=== PATIENT | female | born 1965 | race Caucasian/White ===

== ENCOUNTER → 2018-11-04 | Outpatient (CLI) | payer BC ==
--- NOTE | 2018-11-04 11:04 | RAD ---
Ultrasound left breast INDICATION: Left breast lump TECHNIQUE: Grayscale images of the left breast Limited from 6-9:00 position. COMPARISON: None FINDINGS: No solid or cystic lesion seen in the interrogated left breast. IMPRESSION: No abnormal sonographic findings in the region of palpable abnormality. Electronically signed by: Remberto Duque DO (11/04/2018 11:00 AM) [facility]
--- NOTE | 2018-11-04 11:23 | RAD ---
DATE: 11/04/2018 EXAM: MAMMO NAMRATA DIAG BILAT HISTORY: Left breast lump. COMPARISON: None This study was interpreted with the benefit of Computerized Aided Detection (CAD). FINDINGS: Breast Density: SCATTERED The breast parenchyma shows scattered fibroglandular densities. Breast parenchyma level B. Bilateral retroperitoneal breast implants. The nipples and skin are within normal limits. No suspicious calcifications, spiculated mass or area of architectural distortion. IMPRESSION: No mammographic evidence of malignancy. BI-RADS CATEGORY: 2 BENIGN FINDING(S) RECOMMENDED FOLLOW-UP: 12M 12 MONTH FOLLOW-UP PQRS compliance statement: Patient information was entered into a reminder system with a target due date for the next mammogram. Mammography is a sensitive method for finding small breast cancers, but it does not detect them all and is not a substitute for careful clinical examination. A negative mammogram does not negate a clinically suspicious finding and should not result in delay in biopsying a clinically suspicious abnormality. "Our facility is accredited by the [employer] Mammography Program."
== END | disposition home or self-care (01) ==
LOC: MAMMO 09:10
PROVIDERS: ATTEND Physician Assistant Medical
DX: N63.24 Unspecified lump in the left breast, lower inner quadrant (principal)
CPT/HCPCS: 76641; 77066; G0279; 77062

== ENCOUNTER → 2021-06-14 | Outpatient (CLI) | payer BC ==
[2021-06-14 10:40] LABS: BASO % 1 % (0-3); EOS # 0.1 x10^3/uL (0.0-0.7); EOS % 1 % (0-3); HEMATOCRIT 46.7 % (36.0-47.0); HEMOGLOBIN 15.3 g/dL (12.0-15.5); LYMPH # 2.2 x10^3/uL (1.0-4.8); LYMPH % 29 % (24-48); MEAN CORPUSCULAR HEMOGLOBIN 31 pg (25-35); MEAN CORPUSCULAR HGB CONC 33 g/dL (31-37); MEAN CORPUSCULAR VOLUME 93 fL (79-100); MONO # 0.6 x10^3/uL (0.0-1.1); MONO % 8 % (0-9); NEUT # 4.8 x10^3uL (1.8-7.7); NEUT % 62 % (31-73); PLATELET COUNT 290 x10^3/uL (140-400); RED BLOOD COUNT 5.01 x10^6/uL (3.50-5.40); RED CELL DISTRIBUTION WIDTH 14.3 % (11.5-14.5); WHITE BLOOD COUNT 7.7 x10^3/uL (4.0-11.0)
[2021-06-14 10:52] LABS: ALBUMIN 4.1 g/dL (3.4-5.0); ALBUMIN/GLOBULIN RATIO 1.3 (1.0-1.7); ALK PHOS 115 U/L (46-116); ALT (SGPT) 24 U/L (14-59); ANION GAP 10 (6-14); AST (SGOT) 16 U/L (15-37); BLOOD UREA NITROGEN 4 mg/dL (7-20); BUN/CREATININE RATIO 6 (6-20); CALCIUM 9.1 mg/dL (8.5-10.1); CARBON DIOXIDE 24 mmol/L (21-32); CHLORIDE 107 mmol/L (98-107); CREATININE 0.7 mg/dL (0.6-1.0); GFR 86.2; GLUCOSE 92 mg/dL (70-99); POTASSIUM 3.8 mmol/L (3.5-5.1); SODIUM 141 mmol/L (136-145); TOTAL BILIRUBIN 0.3 mg/dL (0.2-1.0); TOTAL PROTEIN 7.3 g/dL (6.4-8.2)
[2021-06-14 10:53] LABS: BILIRUBIN,URINE NEG (NEG); CLARITY,URINE CLEAR; COLOR,URINE STRAW; GLUCOSE,URINE NEG (NEG); NITRITE,URINE NEG (NEG); UROBILINOGEN,URINE 0.2 mg/dL (0.2 mg/dL)
[2021-06-14 10:54] LABS: BACTERIA,URINE 0 /HPF (0-FEW); RBC,URINE 0 /HPF (0-2); WBC,URINE 0 /HPF (0-4)
[2021-06-14 10:55] LABS: C REACTIVE PROTEIN < 0.5 mg/L (0-3.3)
[2021-06-14 13:59] LABS: FREE T4 1.06 ng/dL (0.76-1.46); THYROID STIM HORMONE (TSH) 1.098 uIU/mL (0.358-3.740)
--- NOTE | 2021-06-14 15:55 | RAD ---
EXAMINATION: XR CHEST 2V CLINICAL HISTORY: COUGH, HX OF SMOKING FOR 45 YEARS, PALPITATIONS, TACHYCARDIA EXAM DATE/TIME: 06/14/2021 10:07 AM COMPARISON: 02/27/2016 FINDINGS: Lines, Tubes, and Devices: None. Cardiomediastinal Silhouette: Normal heart size. Aortic atherosclerotic calcification. Lungs and Pleura: Pulmonary hyperexpansion with mild interstitial prominence, suggestive of COPD/emph ysema. No evidence of focal airspace consolidation or pleural effusion. Bones and Soft Tissues: No acute osseous abnormality. Cholecystectomy clips. IMPRESSION: No evidence of acute cardiopulmonary abnormality. Findings suggestive of COPD/emphysema. Electronically signed by: Quoc Grider DO (06/14/2021 3:52 PM) [id number]
== END ==
LOC: LAB 09:43
PROVIDERS: ATTEND Family Medicine
DX: R05 Cough (principal); R00.2 Palpitations; R19.7 Diarrhea, unspecified; R00.0 Tachycardia, unspecified; Z87.891 Personal history of nicotine dependence
CPT/HCPCS: 36415; 71046; 80053; 80061; 81001; 84439; 84443; 85025; 86140

== ENCOUNTER → 2022-03-26 | Outpatient (CLI) | payer OTHER ==
[2022-03-26 10:29] LABS: BASO # 0.2 x10^3/uL (0.0-0.2); BASO % 3 % (0-3); EOS # 0.1 x10^3/uL (0.0-0.7); EOS % 2 % (0-3); HEMATOCRIT 45.8 % (36.0-47.0); HEMOGLOBIN 15.3 g/dL (12.0-15.5); LYMPH # 2.3 x10^3/uL (1.0-4.8); LYMPH % 35 % (24-48); MEAN CORPUSCULAR HEMOGLOBIN 31 pg (25-35); MEAN CORPUSCULAR HGB CONC 33 g/dL (31-37); MEAN CORPUSCULAR VOLUME 94 fL (79-100); MONO # 0.5 x10^3/uL (0.0-1.1); MONO % 7 % (0-9); NEUT # 3.4 x10^3uL (1.8-7.7); NEUT % 53 % (31-73); PLATELET COUNT 297 x10^3/uL (140-400); RED BLOOD COUNT 4.88 x10^6/uL (3.50-5.40); WHITE BLOOD COUNT 6.5 x10^3/uL (4.0-11.0)
--- NOTE | 2022-03-26 13:02 | RAD ---
AP and Lateral Views of the Chest 03/26/2022 9:38 AM Indication: Productive cough, smoker Comparison: Chest radiograph June 14, 2021 Findings: Lungs are mildly hyperinflated with interstitial coarsening and relative apical lucency sug gestive of emphysematous change. There is no focal consolidation or infiltrate identified. Heart size is normal. There is no evidence of pneumothorax or pleural effusion. No acute osseous abnormalities are identified. Impression: 1. No evidence of acute cardiopulmonary process. 2. Probable changes of emphysema Electronically signed by: Didier Braden MD (03/26/2022 12:59 PM) [id number]
[2022-03-26 13:44] LABS: ALBUMIN 3.7 g/dL (3.4-5.0); ALBUMIN/GLOBULIN RATIO 1.2 (1.0-1.7); CALCIUM 8.9 mg/dL (8.5-10.1); CREATININE 0.6 mg/dL (0.6-1.0); POTASSIUM 4.3 mmol/L (3.5-5.1); TOTAL BILIRUBIN 0.2 mg/dL (0.2-1.0); TOTAL PROTEIN 6.7 g/dL (6.4-8.2)
--- NOTE | 2022-03-26 15:55 | RAD ---
EXAM: XR PARANASAL SINUSES COMPLETE 3+VIEWS 03/26/2022 9:38 AM CLINICAL INDICATION: Left-sided facial burning, headache, smoker COMPARISON: None TECHNIQUE: 3 views FINDINGS: No air-fluid level in the paranasal sinuses. No displaced fracture. IMPRESSION: No acute abnormality. Electronically signed by: Julisa Hurst MD (03/26/2022 3:52 PM) [id number]
[2022-03-26 17:50] LABS: FREE T4 1.02 ng/dL (0.76-1.46); THYROID STIM HORMONE (TSH) 0.886 uIU/mL (0.358-3.740)
[2022-03-26 21:07] LABS: TRANSFERRIN 298 mg/dL (192-364)
[2022-03-26 22:23] LABS: RHEUMATOID FACTOR <10.0 IU/mL (<14.0)
[2022-03-27 01:26] LABS: TESTOSTERONE TOTAL <3 ng/dL (4-50)
[2022-03-27 21:09] LABS: ANA INTERP Negative (.)
== END ==
LOC: RAD 09:16
PROVIDERS: ATTEND Family Medicine
DX: J32.9 Chronic sinusitis, unspecified (principal); G43.909 Migraine, unspecified, not intractable, without status migrainosus; E11.9 Type 2 diabetes mellitus without complications; F17.210 Nicotine dependence, cigarettes, uncomplicated; L65.9 Nonscarring hair loss, unspecified; R05.9 Cough, unspecified; M19.90 Unspecified osteoarthritis, unspecified site; Z84.89 Family history of other specified conditions
CPT/HCPCS: 36415; 70220; 71046; 80053; 82306; 82607; 82746; 83540; 84403; 84439; 84443; 84466; 85025; 86038; 86431